=== PATIENT | female | born 1975 | race Caucasian/White ===

== ENCOUNTER 2021-02-19 14:24 | Inpatient (IN) ==
[2021-02-19] MEDS ORDERED: Ampicillin/Sulbactam 1,500 MG in 0.9 % Sodium Chloride Mini Bag 100 ML IVPB ONE (14:38)
[2021-02-19] MEDS ORDERED: 0.9 % Sodium Chloride 1,000 ML IVC ONE (14:38)
[2021-02-19] MEDS ORDERED: *HR* OxyCODONE/APAP 5/325 TABLET PO ONE (14:45)
[2021-02-19] MEDS ORDERED: Tdap (Boostrix) Vaccine 0.5 ML SYRINGE IM ONE (14:45)
[2021-02-19] MEDS ORDERED: Rabies Vaccine 2.5 UNIT VIAL IM ONE (14:45)
[2021-02-19] MEDS ORDERED: RABIES IMMUNE GLOBULIN/PF 1,500 UNIT/5 ML VIAL IM ONE (14:45)
[2021-02-19] MEDS ORDERED: RABIES IMMUNE GLOBULIN IM SCH (15:00)
[2021-02-19 16:35] LABS: Basophils # 0.1 K/mcL (0.0-0.2); Basophils % 1.4 %; Eosinophils % 0.5 %; Hematocrit 43.7 % (35.3-44.9); Hemoglobin 14.9 g/dL (11.5-15.4); Immature Granulocytes % 0.2 % (0-4); Lymphocytes # 1.9 K/mcL (0.6-4.6); Lymphocytes % 23.4 %; Mean Corpuscular HGB Conc 34.1 g/dL (31.6-35.5); Mean Corpuscular Hemoglobin 31.6 pg (28.0-33.3); Mean Corpuscular Volume 92.6 fL (83.0-100.0); Mean Platelet Volume 8.4 fL (9.4-12.4); Monocytes # 0.5 K/mcL (0.0-1.3); Monocytes % 6.4 %; Neutrophils # 5.6 K/mcL (1.6-8.9); Platelet Count 310 K/mcL (140-400); Red Blood Count 4.72 M/mcL (3.82-4.97); Red Cell Distribution Width 13.1 % (11.5-14.5); Segmented Neutrophils % 68.1 %; White Blood Count 8.3 K/mcL (4.3-11.1)
[2021-02-19 16:58] LABS: BUN/Creatinine Ratio 17 (6-26); Blood Urea Nitrogen 17 mg/dL (6-20); Calcium 9.4 mg/dL (8.6-10.3); Carbon Dioxide 21 mEq/L (23-29); Chloride 105 mEq/L (98-107); Glucose 109 mg/dL (70-105); Osmolality,Calculated 280 (280-300); Sodium 134 mEq/L (136-145); eGFR For African Americans > 60 (> 60); eGFR For Non-African Americans > 60 (> 60)
[2021-02-19] MEDS ORDERED: Melatonin 3 MG TABLET PO PRN (17:54)
[2021-02-19] MEDS ORDERED: Naloxone 0.4 MG/ML INJ IVP PRN (17:54)
[2021-02-19] MEDS ORDERED: Acetaminophen 325 MG TABLET PO PRN (17:54)
[2021-02-19] MEDS ORDERED: Ondansetron 4 MG/2 ML VIAL IVP PRN (17:54)
[2021-02-19] MEDS ORDERED: Ipratropium/Albuterol Neb 3 ML IH PRN (18:52)
[2021-02-19] MEDS: *HR* OxyCODONE Immed Rel 5 MG TABLET PO PRN (20:00)
[2021-02-19] MEDS: Budesonide/Formoterol 160/4.5 1 PUFF INH IH SCH (20:12)
[2021-02-19] MEDS ORDERED: risperiDONE 1 MG TABLET PO SCH (21:00)
[2021-02-19] MEDS ORDERED: lamoTRIgine 100 MG TABLET PO SCH (21:00)
[2021-02-19] MEDS ORDERED: traZODone 50 MG TABLET PO SCH (21:00)
[2021-02-19] MEDS: Nicotine 21 MG PATCH.TD24 TD SCH (21:06)
[2021-02-19] MEDS: *HR* HYDROcodone/Acet 5/325 mg TABLET PO PRN (21:24)
[2021-02-19] MEDS ORDERED: Morphine Sulfate 2 MG/ML SYRINGE IVP ONE (23:56)
[2021-02-20] MEDS: *HR* OxyCODONE Immed Rel 5 MG TABLET PO PRN ×2 (02:28→08:57)
[2021-02-20] MEDS: *HR* HYDROcodone/Acet 5/325 mg TABLET PO PRN (05:22)
[2021-02-20 05:51] LABS: Hematocrit 38.9 % (35.3-44.9); Hemoglobin 13.4 g/dL (11.5-15.4); Mean Corpuscular HGB Conc 34.4 g/dL (31.6-35.5); Mean Corpuscular Hemoglobin 31.9 pg (28.0-33.3); Mean Corpuscular Volume 92.6 fL (83.0-100.0); Mean Platelet Volume 8.5 fL (9.4-12.4); Platelet Count 301 K/mcL (140-400); Red Cell Distribution Width 13.4 % (11.5-14.5); White Blood Count 7.5 K/mcL (4.3-11.1)
[2021-02-20 06:06] LABS: INR 1.4; Prothrombin Time 16.2 Seconds (9.4-12.1)
[2021-02-20 06:29] LABS: BUN/Creatinine Ratio 17 (6-26); Blood Urea Nitrogen 15 mg/dL (6-20); Calcium 8.4 mg/dL (8.6-10.3); Carbon Dioxide 18 mEq/L (23-29); Chloride 107 mEq/L (98-107); Glucose 117 mg/dL (70-105); Osmolality,Calculated 278 (280-300); Potassium 3.5 mEq/L (3.5-5.1); Sodium 133 mEq/L (136-145); eGFR For African Americans > 60 (> 60); eGFR For Non-African Americans > 60 (> 60)
[2021-02-20] MEDS: Nicotine 21 MG PATCH.TD24 TD SCH (08:16)
[2021-02-20] MEDS: Budesonide/Formoterol 160/4.5 1 PUFF INH IH SCH ×2 (08:52→20:36)
[2021-02-20] MEDS ORDERED: polyethylene glycoL 3350 17 GM POWD.PACK PO PRN (09:11)
[2021-02-20] MEDS: Simethicone 80 MG TAB.CHEW PO PRN ×3 (09:56→22:27)
[2021-02-20 11:38] LABS: Adenovirus Not Detected (Not Detect); Coronavirus 229E Not Detected (Not Detect); Coronavirus HKU1 Not Detected (Not Detect); Coronavirus NL63 Not Detected (Not Detect); Coronavirus OC43 Not Detected (Not Detect); Human Metapneumovirus Not Detected (Not Detect); Human Rhinovirus/Enterovirus Not Detected (Not Detect); Influenza A Subtype 2009 H1 Not Detected (Not Detect); SARS-CoV-2 Not Detected (Not Detect)
[2021-02-20 11:39] LABS: Bordetella Pertussis Not Detected (Not Detect); Chlamydophila pneumoniae Not Detected (Not Detect); Influenza B Not Detected (Not Detect); Mycoplasma pneumoniae Not Detected (Not Detect); Parainfluenza Virus 1 Not Detected (Not Detect); Parainfluenza Virus 2 Not Detected (Not Detect); Parainfluenza Virus 3 Not Detected (Not Detect); Parainfluenza Virus 4 Not Detected (Not Detect); Respiratory Syncytial Virus Not Detected (Not Detect)
[2021-02-20] MEDS ORDERED: Morphine Sulfate 2 MG/ML SYRINGE IVP ONE (12:28)
[2021-02-20] MEDS ORDERED: Lidocaine/EPI 1:200k 1% PF 10 ML VIAL ONE (13:03)
[2021-02-20] MEDS ORDERED: Lidocaine -MPF 2% 2 ML VIAL ONE (13:36)
[2021-02-20] MEDS ORDERED: *HR* Propofol 200 MG/20 ML VIAL IVP ONE (13:37)
[2021-02-20] MEDS ORDERED: *HR* FentaNYL (PF) 100 MCG/2 ML VIAL ONE (14:07)
[2021-02-20] MEDS ORDERED: Ondansetron 4 MG/2 ML VIAL ONE (14:07)
[2021-02-20] MEDS ORDERED: Ampicillin/Sulbactam 3,000 MG in 0.9 % Sodium Chloride Mini Bag 100 ML IVPB SCH (15:00)
[2021-02-20] MEDS ORDERED: Ipratropium/Albuterol Neb 3 ML IH PRN (15:32)
[2021-02-20] MEDS ORDERED: *HR* HYDROcodone/Acet 5/325 mg TABLET PO PRN (15:32)
[2021-02-20] MEDS ORDERED: Acetaminophen 325 MG TABLET PO PRN (15:32)
[2021-02-20] MEDS ORDERED: Melatonin 3 MG TABLET PO PRN (15:32)
[2021-02-20] MEDS ORDERED: *HR* OxyCODONE Immed Rel 5 MG TABLET PO PRN (15:32)
[2021-02-20] MEDS ORDERED: Naloxone 0.4 MG/ML INJ IVP PRN (15:32)
[2021-02-20] MEDS ORDERED: 0.9 % Sodium Chloride 1,000 ML IVC ONE ×2 (17:02→17:28)
[2021-02-20] MEDS ORDERED: 0.9 % Sodium Chloride 1,000 ML IVC SCH (17:30)
[2021-02-20 17:48] LABS: Chol/HDL Ratio 3.9 (0-4.9); Cholesterol 117 mg/dL (< 200); Ethanol < 10 mg/dL (Less than 10); HDL Cholesterol 30 mg/dL (40-59); LDL Cholesterol,Calculated 79 mg/dL (< 100); Triglycerides 42 mg/dL (< 150)
[2021-02-20] MEDS ORDERED: *HR* HYDROmorphone (PF) 1 MG/ML SYRINGE IVP ONE (18:47)
[2021-02-20 19:03] LABS: Lipase 74 Units/L (11-82)
[2021-02-20] MEDS: Ondansetron 4 MG/2 ML VIAL IVP PRN (20:50)
[2021-02-20] MEDS: traZODone 50 MG TABLET PO SCH (21:41)
[2021-02-20] MEDS: lamoTRIgine 100 MG TABLET PO SCH (21:41)
[2021-02-20] MEDS: risperiDONE 1 MG TABLET PO SCH (22:22)
[2021-02-20] MEDS: Piperacillin/Tazobactam 3.375 GM in 0.9 % Sodium Chloride Mini Bag 100 ML IVPB SCH (22:27)
[2021-02-21] MEDS ORDERED: Ampicillin/Sulbactam 3,000 MG in 0.9 % Sodium Chloride Mini Bag 100 ML IVPB SCH (04:00)
[2021-02-21] MEDS: Budesonide/Formoterol 160/4.5 1 PUFF INH IH SCH ×2 (08:20→19:47)
[2021-02-21] MEDS: Tiotropium 10 INH DOSE IH SCH (08:20)
[2021-02-21] MEDS: Piperacillin/Tazobactam 3.375 GM in 0.9 % Sodium Chloride Mini Bag 100 ML IVPB SCH ×2 (08:56→16:06)
[2021-02-21 08:57] LABS: Basophils % 0.3 %; Hematocrit 42.8 % (35.3-44.9); Hemoglobin 14.9 g/dL (11.5-15.4); Immature Granulocytes % 0.4 % (0-4); Lymphocytes # 1.2 K/mcL (0.6-4.6); Lymphocytes % 7.8 %; Mean Corpuscular HGB Conc 34.8 g/dL (31.6-35.5); Mean Corpuscular Hemoglobin 32.1 pg (28.0-33.3); Mean Corpuscular Volume 92.2 fL (83.0-100.0); Mean Platelet Volume 8.3 fL (9.4-12.4); Monocytes % 6.4 %; Neutrophils # 13.5 K/mcL (1.6-8.9); Platelet Count 276 K/mcL (140-400); Red Blood Count 4.64 M/mcL (3.82-4.97); Red Cell Distribution Width 13.6 % (11.5-14.5); Segmented Neutrophils % 85.1 %
[2021-02-21 08:58] LABS: Basophils # 0.1 K/mcL (0.0-0.2); White Blood Count 15.8 K/mcL (4.3-11.1)
[2021-02-21 09:16] LABS: Alanine Aminotransferase 132 Units/L (7-52); Albumin 3.5 g/dL (3.5-5.7); Albumin/Globulin Ratio 1.3 (1.1-2.2); Alkaline Phosphatase 50 Units/L (34-104); Aspartate Amino Transferase 103 Units/L (13-39); BUN/Creatinine Ratio 20 (6-26); Bilirubin,Direct 0.2 mg/dL (0.0-0.2); Bilirubin,Indirect 0.5 mg/dL (0.0-1.0); Bilirubin,Total 0.7 mg/dL (0.3-1.0); Blood Urea Nitrogen 13 mg/dL (6-20); Calcium 8.3 mg/dL (8.6-10.3); Carbon Dioxide 21 mEq/L (23-29); Chloride 103 mEq/L (98-107); Globulin 2.8 g/dL (2.4-3.5); Glucose 108 mg/dL (70-105); Osmolality,Calculated 273 (280-300); Potassium 3.9 mEq/L (3.5-5.1); Sodium 131 mEq/L (136-145); Total Protein 6.3 g/dL (6.4-8.9); eGFR For African Americans > 60 (> 60); eGFR For Non-African Americans > 60 (> 60)
[2021-02-21] MEDS ORDERED: Isovue-370 500 ML BOTTLE IVP ONE (10:30)
[2021-02-21] MEDS: 0.9 % Sodium Chloride 1,000 ML IVC SCH ×2 (10:48→20:35)
[2021-02-21] MEDS: Nicotine 21 MG PATCH.TD24 TD SCH (10:50)
[2021-02-21] MEDS: Simethicone 80 MG TAB.CHEW PO PRN (10:50)
[2021-02-21] MEDS ORDERED: Vancomycin 2,000 MG/520 ML IV.SOLN IVPB ONE (11:12)
[2021-02-21 16:09] LABS: Bilirubin,Urine Negative (Negative); Blood,Urine Negative (Negative); Clarity,Urine Clear (Clear); Color,Urine Light-Yellow (Yellow); Glucose,Urine (UA) Normal (Normal); Ketones,Urine 10 mg/dL (Negative); Leukocyte Esterase,Urine Negative (Negative); Nitrite,Urine Negative (Negative); PH,Urine 6.5 pH Units (5.0-8.0); Protein,Urine Trace mg/dL (Neg-Trace); Specific Gravity,Urine > 1.030 (1.010-1.025); Urobilinogen,Urine Normal (Normal)
[2021-02-21] MEDS: lamoTRIgine 100 MG TABLET PO SCH (20:28)
[2021-02-21] MEDS: traZODone 50 MG TABLET PO SCH (20:30)
[2021-02-21] MEDS: risperiDONE 1 MG TABLET PO SCH (20:31)
[2021-02-21] MEDS ORDERED: 0.9 % Sodium Chloride 1,000 ML IVC SCH (21:15)
[2021-02-21] MEDS: Vancomycin 1,500 MG/265 ML IV.SOLN IVPB SCH (22:49)
[2021-02-22 01:09] LABS: Basophils % 0.2 %; Eosinophils % 0.1 %; Hematocrit 42.5 % (35.3-44.9); Hemoglobin 14.1 g/dL (11.5-15.4); Immature Granulocytes % 0.5 % (0-4); Lymphocytes # 1.6 K/mcL (0.6-4.6); Lymphocytes % 8.3 %; Mean Corpuscular HGB Conc 33.2 g/dL (31.6-35.5); Mean Corpuscular Hemoglobin 31.3 pg (28.0-33.3); Mean Corpuscular Volume 94.2 fL (83.0-100.0); Mean Platelet Volume 8.8 fL (9.4-12.4); Monocytes # 1.2 K/mcL (0.0-1.3); Monocytes % 6.2 %; Neutrophils # 16.5 K/mcL (1.6-8.9); Platelet Count 254 K/mcL (140-400); Red Blood Count 4.51 M/mcL (3.82-4.97); Red Cell Distribution Width 13.4 % (11.5-14.5); Segmented Neutrophils % 84.7 %; White Blood Count 19.4 K/mcL (4.3-11.1)
[2021-02-22] MEDS: Piperacillin/Tazobactam 3.375 GM in 0.9 % Sodium Chloride Mini Bag 100 ML IVPB SCH ×3 (01:38→16:50)
[2021-02-22 01:42] LABS: Alanine Aminotransferase 85 Units/L (7-52); Albumin 3.3 g/dL (3.5-5.7); Albumin/Globulin Ratio 1.2 (1.1-2.2); Alkaline Phosphatase 45 Units/L (34-104); Aspartate Amino Transferase 49 Units/L (13-39); BUN/Creatinine Ratio 16 (6-26); Bilirubin,Direct 0.3 mg/dL (0.0-0.2); Bilirubin,Indirect 0.4 mg/dL (0.0-1.0); Bilirubin,Total 0.7 mg/dL (0.3-1.0); Blood Urea Nitrogen 10 mg/dL (6-20); Calcium 7.7 mg/dL (8.6-10.3); Carbon Dioxide 19 mEq/L (23-29); Chloride 104 mEq/L (98-107); Globulin 2.8 g/dL (2.4-3.5); Glucose 88 mg/dL (70-105); Lipase > 1800 Units/L (11-82); Osmolality,Calculated 270 (280-300); Potassium 3.7 mEq/L (3.5-5.1); Sodium 131 mEq/L (136-145); Total Protein 6.1 g/dL (6.4-8.9); eGFR For African Americans > 60 (> 60); eGFR For Non-African Americans > 60 (> 60)
[2021-02-22] MEDS ORDERED: 0.9 % Sodium Chloride 1,000 ML IVC SCH (07:37)
[2021-02-22] MEDS ORDERED: Rabies Vaccine 2.5 UNIT VIAL IM ONE (09:00)
[2021-02-22] MEDS: Nicotine 21 MG PATCH.TD24 TD SCH (09:08)
[2021-02-22] MEDS: Simethicone 80 MG TAB.CHEW PO PRN ×2 (09:39→20:08)
[2021-02-22] MEDS: Budesonide/Formoterol 160/4.5 1 PUFF INH IH SCH ×2 (10:38→20:22)
[2021-02-22] MEDS: Tiotropium 10 INH DOSE IH SCH (10:38)
[2021-02-22] MEDS: Vancomycin 1,500 MG/265 ML IV.SOLN IVPB SCH (11:04)
[2021-02-22] MEDS: 0.9 % Sodium Chloride 1,000 ML IVC SCH ×3 (11:48→20:03)
[2021-02-22] MEDS: polyethylene glycoL 3350 17 GM POWD.PACK PO PRN (14:17)
[2021-02-22] MEDS: traZODone 50 MG TABLET PO SCH (20:02)
[2021-02-22] MEDS: risperiDONE 1 MG TABLET PO SCH (20:02)
[2021-02-22] MEDS: lamoTRIgine 100 MG TABLET PO SCH (20:02)
[2021-02-23] MEDS ORDERED: Vancomycin 1,750 MG/517.5 ML IV.SOLN IVPB SCH
[2021-02-23] MEDS: Piperacillin/Tazobactam 3.375 GM in 0.9 % Sodium Chloride Mini Bag 100 ML IVPB SCH ×2 (01:19→08:25)
[2021-02-23] MEDS: 0.9 % Sodium Chloride 1,000 ML IVC SCH ×2 (01:20→15:25)
[2021-02-23 03:42] LABS: Basophils # 0.1 K/mcL (0.0-0.2); Basophils % 0.3 %; Eosinophils % 0.1 %; Hematocrit 35.6 % (35.3-44.9); Lymphocytes # 1.6 K/mcL (0.6-4.6); Mean Corpuscular HGB Conc 33.4 g/dL (31.6-35.5); Mean Corpuscular Hemoglobin 31.4 pg (28.0-33.3); Mean Corpuscular Volume 93.9 fL (83.0-100.0); Mean Platelet Volume 8.9 fL (9.4-12.4); Monocytes # 1.3 K/mcL (0.0-1.3); Monocytes % 8.3 %; Neutrophils # 12.5 K/mcL (1.6-8.9); Platelet Count 219 K/mcL (140-400); Red Blood Count 3.79 M/mcL (3.82-4.97); Red Cell Distribution Width 13.9 % (11.5-14.5); Segmented Neutrophils % 80.3 %; White Blood Count 15.6 K/mcL (4.3-11.1)
[2021-02-23 03:44] LABS: Hemoglobin 11.9 g/dL (11.5-15.4)
[2021-02-23 04:03] LABS: Alanine Aminotransferase 41 Units/L (7-52); Albumin 2.7 g/dL (3.5-5.7); Alkaline Phosphatase 37 Units/L (34-104); Aspartate Amino Transferase 23 Units/L (13-39); BUN/Creatinine Ratio 15 (6-26); Bilirubin,Direct 0.5 mg/dL (0.0-0.2); Bilirubin,Indirect 0.8 mg/dL (0.0-1.0); Bilirubin,Total 1.3 mg/dL (0.3-1.0); Blood Urea Nitrogen 8 mg/dL (6-20); Calcium 7.2 mg/dL (8.6-10.3); Carbon Dioxide 18 mEq/L (23-29); Chloride 103 mEq/L (98-107); Globulin 2.6 g/dL (2.4-3.5); Glucose 73 mg/dL (70-105); Lipase 222 Units/L (11-82); Osmolality,Calculated 267 (280-300); Potassium 3.4 mEq/L (3.5-5.1); Sodium 130 mEq/L (136-145); Total Protein 5.3 g/dL (6.4-8.9); eGFR For African Americans > 60 (> 60); eGFR For Non-African Americans > 60 (> 60)
[2021-02-23] MEDS ORDERED: Potassium Chloride Elixir 20 MEQ/15 ML UDC PO ONE (07:24)
[2021-02-23] MEDS: Tiotropium 10 INH DOSE IH SCH (08:08)
[2021-02-23] MEDS: Budesonide/Formoterol 160/4.5 1 PUFF INH IH SCH ×2 (08:08→20:19)
[2021-02-23] MEDS: Nicotine 21 MG PATCH.TD24 TD SCH (08:24)
[2021-02-23 08:26] LABS: Hematocrit 34.2 % (35.3-44.9); Hemoglobin 11.6 g/dL (11.5-15.4)
[2021-02-23] MEDS ORDERED: 0.9 % Sodium Chloride 1,000 ML IV ONE (10:27)
[2021-02-23 11:58] LABS: C-Reactive Protein 185 mg/L (Less than 10)
[2021-02-23] MEDS: Clindamycin 600 MG/50 ML 600 MG/50 ML IV.SOLN IVPB SCH ×2 (15:24→23:48)
[2021-02-23] MEDS: Penicillin G Potassium 4,000,000 UNIT in 0.9 % Sodium Chloride 100 ML IVPB SCH ×3 (17:58→23:48)
[2021-02-23] MEDS: traZODone 50 MG TABLET PO SCH (19:36)
[2021-02-23] MEDS: Simethicone 80 MG TAB.CHEW PO PRN (19:39)
[2021-02-23] MEDS: Lactobacillus 1 EACH CAP.SPRINK PO SCH (19:39)
[2021-02-23] MEDS: risperiDONE 1 MG TABLET PO SCH (19:39)
[2021-02-23] MEDS: lamoTRIgine 100 MG TABLET PO SCH (19:40)
[2021-02-24] MEDS: 0.9 % Sodium Chloride 1,000 ML IVC SCH ×6 (01:43→21:08)
[2021-02-24 02:52] LABS: Basophils % 0.3 %; Eosinophils % 0.2 %; Hematocrit 32.5 % (35.3-44.9); Hemoglobin 11.4 g/dL (11.5-15.4); Immature Granulocytes % 0.4 % (0-4); Lymphocytes # 1.4 K/mcL (0.6-4.6); Lymphocytes % 9.6 %; Mean Corpuscular HGB Conc 35.1 g/dL (31.6-35.5); Mean Corpuscular Hemoglobin 32.4 pg (28.0-33.3); Mean Corpuscular Volume 92.3 fL (83.0-100.0); Mean Platelet Volume 9.2 fL (9.4-12.4); Monocytes # 1.1 K/mcL (0.0-1.3); Monocytes % 8.1 %; Neutrophils # 11.4 K/mcL (1.6-8.9); Platelet Count 214 K/mcL (140-400); Red Blood Count 3.52 M/mcL (3.82-4.97); Red Cell Distribution Width 13.9 % (11.5-14.5); Segmented Neutrophils % 81.4 %
[2021-02-24 03:04] LABS: Alanine Aminotransferase 29 Units/L (7-52); Albumin 2.8 g/dL (3.5-5.7); Alkaline Phosphatase 43 Units/L (34-104); Aspartate Amino Transferase 19 Units/L (13-39); BUN/Creatinine Ratio 13 (6-26); Bilirubin,Direct 1.4 mg/dL (0.0-0.2); Bilirubin,Indirect 0.6 mg/dL (0.0-1.0); Blood Urea Nitrogen 6 mg/dL (6-20); C-Reactive Protein 229 mg/L (Less than 10); Calcium 7.6 mg/dL (8.6-10.3); Carbon Dioxide 17 mEq/L (23-29); Chloride 104 mEq/L (98-107); Globulin 2.7 g/dL (2.4-3.5); Glucose 72 mg/dL (70-105); Lipase 74 Units/L (11-82); Osmolality,Calculated 270 (280-300); Potassium 3.3 mEq/L (3.5-5.1); Sodium 132 mEq/L (136-145); Total Protein 5.5 g/dL (6.4-8.9); eGFR For African Americans > 60 (> 60); eGFR For Non-African Americans > 60 (> 60)
[2021-02-24] MEDS: Simethicone 80 MG TAB.CHEW PO PRN ×3 (04:46→22:53)
[2021-02-24] MEDS: Penicillin G Potassium 4,000,000 UNIT in 0.9 % Sodium Chloride 100 ML IVPB SCH ×5 (04:46→21:02)
[2021-02-24] MEDS ORDERED: Potassium Chloride 40 MEQ, Lidocaine 1% 2 ML in 0.9 % Sodium Chloride 500 ML IVPB ONE (07:19)
[2021-02-24] MEDS: Budesonide/Formoterol 160/4.5 1 PUFF INH IH SCH ×2 (07:54→19:35)
[2021-02-24] MEDS: Tiotropium 10 INH DOSE IH SCH (07:54)
[2021-02-24] MEDS: Clindamycin 600 MG/50 ML 600 MG/50 ML IV.SOLN IVPB SCH (08:43)
[2021-02-24] MEDS: Nicotine 21 MG PATCH.TD24 TD SCH (08:44)
[2021-02-24] MEDS: Lactobacillus 1 EACH CAP.SPRINK PO SCH ×2 (08:44→21:02)
[2021-02-24] MEDS: polyethylene glycoL 3350 17 GM POWD.PACK PO PRN (12:55)
[2021-02-24] MEDS: Ondansetron 4 MG/2 ML VIAL IVP PRN (18:56)
[2021-02-24] MEDS: risperiDONE 1 MG TABLET PO SCH (21:02)
[2021-02-24] MEDS: traZODone 50 MG TABLET PO SCH (21:03)
[2021-02-24] MEDS: lamoTRIgine 100 MG TABLET PO SCH (21:03)
[2021-02-25] MEDS: Penicillin G Potassium 4,000,000 UNIT in 0.9 % Sodium Chloride 100 ML IVPB SCH ×7 (00:42→23:40)
[2021-02-25] MEDS: 0.9 % Sodium Chloride 1,000 ML IVC SCH ×6 (00:42→20:10)
[2021-02-25 01:10] LABS: Basophils # 0.1 K/mcL (0.0-0.2); Basophils % 0.4 %; Eosinophils % 0.3 %; Hematocrit 29.7 % (35.3-44.9); Hemoglobin 10.2 g/dL (11.5-15.4); Immature Granulocytes % 0.6 % (0-4); Lymphocytes # 1.4 K/mcL (0.6-4.6); Lymphocytes % 10.9 %; Mean Corpuscular HGB Conc 34.3 g/dL (31.6-35.5); Mean Corpuscular Hemoglobin 31.9 pg (28.0-33.3); Mean Corpuscular Volume 92.8 fL (83.0-100.0); Monocytes # 1.3 K/mcL (0.0-1.3); Monocytes % 10.2 %; Neutrophils # 9.6 K/mcL (1.6-8.9); Platelet Count 239 K/mcL (140-400); Segmented Neutrophils % 77.6 %; White Blood Count 12.4 K/mcL (4.3-11.1)
[2021-02-25 01:33] LABS: Alanine Aminotransferase 25 Units/L (7-52); Albumin 2.8 g/dL (3.5-5.7); Alkaline Phosphatase 53 Units/L (34-104); Aspartate Amino Transferase 21 Units/L (13-39); BUN/Creatinine Ratio 6 (6-26); Bilirubin,Direct 2.1 mg/dL (0.0-0.2); Bilirubin,Indirect 0.9 mg/dL (0.0-1.0); Blood Urea Nitrogen 3 mg/dL (6-20); Calcium 7.6 mg/dL (8.6-10.3); Carbon Dioxide 18 mEq/L (23-29); Chloride 107 mEq/L (98-107); Globulin 2.9 g/dL (2.4-3.5); Glucose 106 mg/dL (70-105); Osmolality,Calculated 275 (280-300); Potassium 3.3 mEq/L (3.5-5.1); Sodium 134 mEq/L (136-145); Total Protein 5.7 g/dL (6.4-8.9); eGFR For African Americans > 60 (> 60); eGFR For Non-African Americans > 60 (> 60)
[2021-02-25] MEDS: Tiotropium 10 INH DOSE IH SCH (07:27)
[2021-02-25] MEDS: Budesonide/Formoterol 160/4.5 1 PUFF INH IH SCH ×2 (07:27→22:02)
[2021-02-25] MEDS: Lactobacillus 1 EACH CAP.SPRINK PO SCH ×2 (07:52→20:08)
[2021-02-25] MEDS: Nicotine 21 MG PATCH.TD24 TD SCH (07:55)
[2021-02-25] MEDS ORDERED: Potassium Chloride 40 MEQ, Lidocaine 1% 2 ML in 0.9 % Sodium Chloride 500 ML IVPB ONE (09:59)
[2021-02-25] MEDS: risperiDONE 1 MG TABLET PO SCH (20:08)
[2021-02-25] MEDS: traZODone 50 MG TABLET PO SCH (20:08)
[2021-02-25] MEDS: lamoTRIgine 100 MG TABLET PO SCH (20:08)
[2021-02-25] MEDS: Simethicone 80 MG TAB.CHEW PO PRN (21:53)
[2021-02-26 00:54] LABS: Basophils % 0.3 %; Eosinophils # 0.1 K/mcL (0.0-0.6); Eosinophils % 0.7 %; Hemoglobin 10.1 g/dL (11.5-15.4); Immature Granulocytes % 0.5 % (0-4); Lymphocytes # 1.3 K/mcL (0.6-4.6); Lymphocytes % 10.9 %; Mean Corpuscular HGB Conc 34.8 g/dL (31.6-35.5); Mean Corpuscular Hemoglobin 32.2 pg (28.0-33.3); Mean Corpuscular Volume 92.4 fL (83.0-100.0); Mean Platelet Volume 9.1 fL (9.4-12.4); Monocytes # 1.3 K/mcL (0.0-1.3); Monocytes % 10.2 %; Neutrophils # 9.5 K/mcL (1.6-8.9); Platelet Count 243 K/mcL (140-400); Red Blood Count 3.14 M/mcL (3.82-4.97); Red Cell Distribution Width 14.2 % (11.5-14.5); Segmented Neutrophils % 77.4 %; White Blood Count 12.3 K/mcL (4.3-11.1)
[2021-02-26 01:13] LABS: Alanine Aminotransferase 25 Units/L (7-52); Albumin 2.7 g/dL (3.5-5.7); Albumin/Globulin Ratio 0.9 (1.1-2.2); Alkaline Phosphatase 55 Units/L (34-104); Aspartate Amino Transferase 25 Units/L (13-39); BUN/Creatinine Ratio 7 (6-26); Blood Urea Nitrogen 3 mg/dL (6-20); Calcium 7.7 mg/dL (8.6-10.3); Carbon Dioxide 19 mEq/L (23-29); Chloride 108 mEq/L (98-107); Glucose 98 mg/dL (70-105); Osmolality,Calculated 279 (280-300); Potassium 3.6 mEq/L (3.5-5.1); Sodium 136 mEq/L (136-145); Total Protein 5.7 g/dL (6.4-8.9); eGFR For African Americans > 60 (> 60); eGFR For Non-African Americans > 60 (> 60)
[2021-02-26] MEDS: 0.9 % Sodium Chloride 1,000 ML IVC SCH ×7 (02:04→23:59)
[2021-02-26] MEDS: Penicillin G Potassium 4,000,000 UNIT in 0.9 % Sodium Chloride 100 ML IVPB SCH ×5 (04:40→19:47)
[2021-02-26] MEDS: Budesonide/Formoterol 160/4.5 1 PUFF INH IH SCH ×2 (07:48→20:23)
[2021-02-26] MEDS: Tiotropium 10 INH DOSE IH SCH (07:48)
[2021-02-26] MEDS: Nicotine 21 MG PATCH.TD24 TD SCH (07:55)
[2021-02-26] MEDS: Lactobacillus 1 EACH CAP.SPRINK PO SCH ×2 (07:55→19:46)
[2021-02-26] MEDS: Simethicone 80 MG TAB.CHEW PO PRN ×2 (08:06→19:46)
[2021-02-26] MEDS ORDERED: Rabies Vaccine 2.5 UNIT VIAL IM ONE (15:07)
[2021-02-26] MEDS: risperiDONE 1 MG TABLET PO SCH (19:46)
[2021-02-26] MEDS: lamoTRIgine 100 MG TABLET PO SCH (19:47)
[2021-02-26] MEDS: traZODone 50 MG TABLET PO SCH (19:47)
[2021-02-27] MEDS: Penicillin G Potassium 4,000,000 UNIT in 0.9 % Sodium Chloride 100 ML IVPB SCH ×6 (00:02→20:38)
[2021-02-27 01:44] LABS: Basophils % 0.2 %; Eosinophils # 0.1 K/mcL (0.0-0.6); Eosinophils % 0.9 %; Hematocrit 27.2 % (35.3-44.9); Hemoglobin 9.6 g/dL (11.5-15.4); Lymphocytes % 16.4 %; Mean Corpuscular HGB Conc 35.3 g/dL (31.6-35.5); Mean Corpuscular Hemoglobin 32.3 pg (28.0-33.3); Mean Corpuscular Volume 91.6 fL (83.0-100.0); Monocytes # 1.1 K/mcL (0.0-1.3); Monocytes % 8.6 %; Platelet Count 265 K/mcL (140-400); Red Blood Count 2.97 M/mcL (3.82-4.97); Red Cell Distribution Width 14.1 % (11.5-14.5); Segmented Neutrophils % 72.9 %; White Blood Count 12.3 K/mcL (4.3-11.1)
[2021-02-27 02:01] LABS: Alanine Aminotransferase 32 Units/L (7-52); Albumin 2.7 g/dL (3.5-5.7); Albumin/Globulin Ratio 0.9 (1.1-2.2); Alkaline Phosphatase 66 Units/L (34-104); Aspartate Amino Transferase 43 Units/L (13-39); BUN/Creatinine Ratio 9 (6-26); Bilirubin,Total 2.3 mg/dL (0.3-1.0); Blood Urea Nitrogen 4 mg/dL (6-20); Calcium 7.7 mg/dL (8.6-10.3); Carbon Dioxide 19 mEq/L (23-29); Chloride 106 mEq/L (98-107); Glucose 106 mg/dL (70-105); Osmolality,Calculated 273 (280-300); Potassium 3.3 mEq/L (3.5-5.1); Sodium 133 mEq/L (136-145); Total Protein 5.7 g/dL (6.4-8.9); eGFR For African Americans > 60 (> 60); eGFR For Non-African Americans > 60 (> 60)
[2021-02-27 02:37] LABS: Platelet Estimate Normal (Normal); Reactive Lymphocytes Present (Not Present)
[2021-02-27] MEDS: 0.9 % Sodium Chloride 1,000 ML IVC SCH ×2 (03:41→08:13)
[2021-02-27] MEDS ORDERED: *HR* Succinylcholine 200 MG/10 ML VIAL IVP ONE (06:58)
[2021-02-27] MEDS ORDERED: *HR* Rocuronium Bromide 50 MG/5 ML VIAL ONE (06:58)
[2021-02-27] MEDS ORDERED: Lidocaine -MPF 4% 5 ML AMPUL ONE (06:58)
[2021-02-27] MEDS ORDERED: Ondansetron 4 MG/2 ML VIAL ONE (06:58)
[2021-02-27] MEDS ORDERED: Lidocaine -MPF 2% 2 ML VIAL ONE (06:58)
[2021-02-27] MEDS ORDERED: *HR* FentaNYL (PF) 100 MCG/2 ML VIAL ONE (06:59)
[2021-02-27] MEDS ORDERED: *HR* Propofol 200 MG/20 ML VIAL IVP ONE ×2 (06:59)
[2021-02-27] MEDS ORDERED: *HR* Midazolam HCl 2 MG/2 ML VIAL ONE (06:59)
[2021-02-27] MEDS: Budesonide/Formoterol 160/4.5 1 PUFF INH IH SCH ×2 (07:30→20:35)
[2021-02-27] MEDS: Tiotropium 10 INH DOSE IH SCH (07:30)
[2021-02-27] MEDS ORDERED: Isovue-300 50ML VIAL ONE (07:46)
[2021-02-27] MEDS ORDERED: cefOXitin 1,000 MG, 0.9 % Sodium Chloride 1,000 ML IR ONE (08:00)
[2021-02-27] MEDS: Lactobacillus 1 EACH CAP.SPRINK PO SCH ×2 (08:12→20:17)
[2021-02-27] MEDS: Nicotine 21 MG PATCH.TD24 TD SCH (08:18)
[2021-02-27] MEDS ORDERED: Ondansetron 4 MG/2 ML VIAL IVP PRN ×3 (08:19→10:41)
[2021-02-27] MEDS ORDERED: *HR* HYDROmorphone PF 0.5 MG/0.5 ML SYRINGE IVP PRN ×2 (08:19→10:41)
[2021-02-27] MEDS ORDERED: Potassium Chloride 40 MEQ, Lidocaine 1% 2 ML in 0.9 % Sodium Chloride 500 ML IVPB ONE ×2 (08:49→10:41)
[2021-02-27] MEDS ORDERED: *HR* HYDROMORPHONE 2 MG/ML VIAL ONE ×2 (09:11→09:57)
[2021-02-27] MEDS ORDERED: Sugammadex Sodium 200 MG/2 ML VIAL IV ONE (09:40)
[2021-02-27] MEDS ORDERED: Acetaminophen IV 1,000 MG/100 ML BAG IVPB ONE (10:11)
[2021-02-27] MEDS ORDERED: 0.9 % Sodium Chloride 1,000 ML IVC SCH ×2 (10:41→14:45)
[2021-02-27] MEDS ORDERED: polyethylene glycoL 3350 17 GM POWD.PACK PO PRN (10:41)
[2021-02-27] MEDS ORDERED: Naloxone 0.4 MG/ML INJ IVP PRN (10:41)
[2021-02-27] MEDS ORDERED: Melatonin 3 MG TABLET PO PRN (10:41)
[2021-02-27] MEDS ORDERED: Simethicone 80 MG TAB.CHEW PO PRN (10:41)
[2021-02-27] MEDS ORDERED: Ipratropium/Albuterol Neb 3 ML IH PRN (10:41)
[2021-02-27] MEDS ORDERED: risperiDONE 1 MG TABLET PO SCH (21:00)
[2021-02-27] MEDS ORDERED: lamoTRIgine 100 MG TABLET PO SCH (21:00)
[2021-02-27] MEDS ORDERED: traZODone 50 MG TABLET PO SCH (21:00)
[2021-02-28] MEDS: Penicillin G Potassium 4,000,000 UNIT in 0.9 % Sodium Chloride 100 ML IVPB SCH ×3 (00:29→08:03)
[2021-02-28 07:15] VITALS: BP 142/71
[2021-02-28 07:20] LABS: Basophils % 0.2 %; Hematocrit 28.4 % (35.3-44.9); Hemoglobin 9.4 g/dL (11.5-15.4); Lymphocytes # 1.5 K/mcL (0.6-4.6); Lymphocytes % 13.8 %; Mean Corpuscular HGB Conc 33.1 g/dL (31.6-35.5); Mean Corpuscular Hemoglobin 31.1 pg (28.0-33.3); Mean Platelet Volume 8.9 fL (9.4-12.4); Monocytes # 0.9 K/mcL (0.0-1.3); Neutrophils # 8.5 K/mcL (1.6-8.9); Platelet Count 293 K/mcL (140-400); Red Blood Count 3.02 M/mcL (3.82-4.97); Red Cell Distribution Width 14.6 % (11.5-14.5); White Blood Count 11.1 K/mcL (4.3-11.1)
[2021-02-28 07:34] LABS: Alanine Aminotransferase 42 Units/L (7-52); Albumin 2.8 g/dL (3.5-5.7); Albumin/Globulin Ratio 0.9 (1.1-2.2); Alkaline Phosphatase 63 Units/L (34-104); Aspartate Amino Transferase 54 Units/L (13-39); BUN/Creatinine Ratio 10 (6-26); Bilirubin,Total 1.3 mg/dL (0.3-1.0); Blood Urea Nitrogen 5 mg/dL (6-20); Carbon Dioxide 21 mEq/L (23-29); Chloride 107 mEq/L (98-107); Glucose 148 mg/dL (70-105); Osmolality,Calculated 282 (280-300); Potassium 3.6 mEq/L (3.5-5.1); Sodium 136 mEq/L (136-145); Total Protein 5.8 g/dL (6.4-8.9); eGFR For African Americans > 60 (> 60); eGFR For Non-African Americans > 60 (> 60)
[2021-02-28] MEDS: Budesonide/Formoterol 160/4.5 1 PUFF INH IH SCH (07:57)
[2021-02-28] MEDS: Lactobacillus 1 EACH CAP.SPRINK PO SCH (08:03)
[2021-02-28] MEDS ORDERED: Nicotine 21 MG PATCH.TD24 TD SCH (09:00)
[2021-02-28] MEDS ORDERED: Tiotropium 10 INH DOSE IH SCH (10:00)
== END 2021-02-28 11:03 | disposition home or self-care (01) | DRG 853 ==
LOC: EMEROOARM 14:24 → 3NENU 14:24 → SUATTDRO 17:32 → 3NENU 18:23 → SUATTDRO 02-21 21:15
PROVIDERS: ADMIT Internal Medicine; ATTEND Family Medicine

== ENCOUNTER 2022-01-20 06:39 | Observation (INO) ==
[2022-01-20] MEDS ORDERED: Famotidine 20 MG TABLET PO ONE (07:00)
[2022-01-20] MEDS ORDERED: tiZANidine 4 MG TABLET PO ONE (07:00)
[2022-01-20] MEDS ORDERED: Gabapentin 300 MG CAPSULE PO ONE (07:00)
[2022-01-20] MEDS ORDERED: Vancomycin 1,000 MG VIAL ONE (07:05)
[2022-01-20] MEDS ORDERED: CeFAZolin Syr 3,000MG/30 ML 3,000 MG/30 ML SYRINGE IVPB ONE (07:11)
[2022-01-20] MEDS ORDERED: Ringers Solution, Lactated 1,000 ML IVC SCH (07:15)
[2022-01-20] MEDS ORDERED: *HR* FentaNYL (PF) 100 MCG/2 ML VIAL ONE (07:20)
[2022-01-20] MEDS ORDERED: *HR* Propofol 200 MG/20 ML VIAL IVP ONE (07:20)
[2022-01-20] MEDS ORDERED: *HR* Midazolam HCl 5 MG/5 ML VIAL IVP ONE (07:21)
[2022-01-20] MEDS ORDERED: Lidocaine HCL 4 ML Topical Solution (Laryng-O-Jet Kit Sterile Pak) TP ONE (07:23)
[2022-01-20] MEDS ORDERED: Lidocaine -MPF 2% 2 ML VIAL ONE (07:23)
[2022-01-20] MEDS ORDERED: *HR* Succinylcholine 200 MG/10 ML VIAL IVP ONE (07:23)
[2022-01-20] MEDS ORDERED: *HR* Remifentanil 2 MG VIAL IVP ONE (07:26)
[2022-01-20] MEDS ORDERED: Dexmedetomidine HCl 400 MCG/100 ML MLS IVC ONE (07:29)
[2022-01-20] MEDS ORDERED: *HR* OxyCODONE Immed Rel 5 MG TABLET PO PRN (07:39)
[2022-01-20] MEDS ORDERED: Ondansetron 4 MG/2 ML VIAL IVP PRN ×2 (07:39→14:25)
[2022-01-20] MEDS ORDERED: *HR* FentaNYL (PF) 100 MCG/2 ML VIAL IVP PRN (07:39)
[2022-01-20] MEDS ORDERED: Promethazine 6.25 MG in Water for inj. (sterile) 20 ML IVPB PRN (07:39)
[2022-01-20] MEDS ORDERED: Ipratropium Neb 0.5 MG NEBULIZER IH PRN (07:39)
[2022-01-20] MEDS ORDERED: *HR* Labetalol 20 MG/4 ML SYRINGE IVP PRN (07:39)
[2022-01-20] MEDS ORDERED: Albuterol 2.5 MG/3 ML NEBULIZER IH PRN (07:39)
[2022-01-20] MEDS ORDERED: Polymyxin B Sulfate 500,000 UNIT, Sodium Chloride IRRigation 1,000 ML IR ONE (07:45)
[2022-01-20] MEDS ORDERED: Ondansetron 4 MG/2 ML VIAL ONE (08:30)
[2022-01-20] MEDS ORDERED: *HR* Remifentanil 1 MG VIAL IVP ONE (09:49)
[2022-01-20] MEDS ORDERED: Ketorolac 30 MG/ML VIAL ONE (10:46)
[2022-01-20] MEDS ORDERED: *HR* HYDROMORPHONE 2 MG/ML VIAL ONE (11:00)
[2022-01-20] MEDS: *HR* HYDROmorphone PF 0.5 MG/0.5 ML SYRINGE IVP PRN ×3 (11:40→12:00)
[2022-01-20] MEDS ORDERED: Naloxone 0.4 MG/ML INJ IVP PRN (14:25)
[2022-01-20] MEDS ORDERED: Fluticasone Propionate Nasal 50 MCG/SPRAY BOTTLE NS PRN (14:25)
[2022-01-20] MEDS: Ringers Solution, Lactated 1,000 ML IVC SCH (15:24)
[2022-01-20] MEDS: *HR* OxyCODONE Immed Rel 5 MG TABLET PO PRN ×3 (15:24→23:40)
[2022-01-20] MEDS: Gabapentin 300 MG CAPSULE PO SCH ×3 (15:24→20:52)
[2022-01-20] MEDS: CeFAZolin 2 GM/120 ML BAG IVPB SCH ×2 (15:25→23:41)
[2022-01-20] MEDS: Ipratropium/Albuterol Neb 3 ML IH SCH ×3 (15:33→21:31)
[2022-01-20] MEDS: *HR* HYDROcodone/Acet 5/325 mg TABLET PO PRN (20:51)
[2022-01-20] MEDS: risperiDONE 1 MG TABLET PO SCH (20:51)
[2022-01-20] MEDS: Budesonide/Formoterol 80/4.5 1 PUFF INH IH SCH (21:32)
[2022-01-21] MEDS: *HR* HYDROcodone/Acet 5/325 mg TABLET PO PRN ×3 (05:56→22:06)
[2022-01-21] MEDS ORDERED: Ondansetron 4 MG/2 ML VIAL ONE (06:59)
[2022-01-21] MEDS ORDERED: *HR* Succinylcholine 200 MG/10 ML VIAL IVP ONE (06:59)
[2022-01-21] MEDS ORDERED: *HR* Rocuronium Bromide 50 MG/5 ML VIAL ONE (06:59)
[2022-01-21] MEDS ORDERED: *HR* FentaNYL (PF) 100 MCG/2 ML VIAL ONE (06:59)
[2022-01-21] MEDS ORDERED: *HR* Midazolam HCl 2 MG/2 ML VIAL ONE (07:00)
[2022-01-21] MEDS ORDERED: *HR* Propofol 200 MG/20 ML VIAL IVP ONE (07:00)
[2022-01-21] MEDS ORDERED: *HR* Remifentanil 2 MG VIAL IVP ONE (07:11)
[2022-01-21] MEDS ORDERED: EPHEDrine 50 MG/ML VIAL ONE (07:33)
[2022-01-21] MEDS: Ipratropium/Albuterol Neb 3 ML IH SCH ×4 (07:38→23:03)
[2022-01-21] MEDS: Ringers Solution, Lactated 1,000 ML IVC SCH ×2 (07:38→09:44)
[2022-01-21] MEDS: Budesonide/Formoterol 80/4.5 1 PUFF INH IH SCH ×2 (07:59→20:00)
[2022-01-21] MEDS: lamoTRIgine 100 MG TABLET PO SCH (09:42)
[2022-01-21] MEDS: Gabapentin 300 MG CAPSULE PO SCH ×4 (09:43→21:16)
[2022-01-21] MEDS: *HR* OxyCODONE Immed Rel 5 MG TABLET PO PRN ×3 (09:43→18:41)
[2022-01-21] MEDS: BuPROPion SR (12 HR) 150 MG TABLET PO SCH (09:43)
[2022-01-21] MEDS ORDERED: Tiotropium 10 INH DOSE IH PRN (10:00)
[2022-01-21] MEDS: Acetaminophen 325 MG TABLET PO PRN (17:36)
[2022-01-21] MEDS: risperiDONE 1 MG TABLET PO SCH (21:16)
[2022-01-22] MEDS: *HR* OxyCODONE Immed Rel 5 MG TABLET PO PRN ×5 (00:57→20:49)
[2022-01-22] MEDS: Gabapentin 300 MG CAPSULE PO SCH ×4 (08:05→20:48)
[2022-01-22] MEDS: BuPROPion SR (12 HR) 150 MG TABLET PO SCH (08:05)
[2022-01-22] MEDS: lamoTRIgine 100 MG TABLET PO SCH (08:05)
[2022-01-22] MEDS: *HR* HYDROcodone/Acet 5/325 mg TABLET PO PRN (09:47)
[2022-01-22] MEDS: Ipratropium/Albuterol Neb 3 ML IH SCH ×4 (10:41→21:04)
[2022-01-22] MEDS: Budesonide/Formoterol 80/4.5 1 PUFF INH IH SCH ×2 (10:42→21:05)
[2022-01-22] MEDS: levoFLOXacin 750 MG TABLET PO SCH (13:07)
[2022-01-22 14:15] LABS: Basophils # 0.1 K/mcL (0.0-0.2); Basophils % 0.6 %; Eosinophils % 0.4 %; Hematocrit 35.6 % (35.3-44.9); Immature Granulocytes % 0.2 % (0-4); Lymphocytes % 21.4 %; Mean Corpuscular HGB Conc 33.7 g/dL (31.6-35.5); Mean Corpuscular Hemoglobin 31.5 pg (28.0-33.3); Mean Corpuscular Volume 93.4 fL (83.0-100.0); Monocytes # 0.9 K/mcL (0.0-1.3); Monocytes % 9.4 %; Neutrophils # 6.3 K/mcL (1.6-8.9); Platelet Count 211 K/mcL (140-400); Red Blood Count 3.81 M/mcL (3.82-4.97); White Blood Count 9.3 K/mcL (4.3-11.1)
[2022-01-22 14:32] LABS: BUN/Creatinine Ratio 8 (6-26); Blood Urea Nitrogen 6 mg/dL (6-20); Calcium 8.8 mg/dL (8.6-10.3); Carbon Dioxide 27 mEq/L (23-29); Chloride 101 mEq/L (98-107); Glucose 99 mg/dL (70-105); Osmolality,Calculated 278 (280-300); Potassium 3.4 mEq/L (3.5-5.1); Sodium 135 mEq/L (136-145); eGFR For African Americans > 60 (> 60); eGFR For Non-African Americans > 60 (> 60)
[2022-01-22] MEDS: risperiDONE 1 MG TABLET PO SCH (20:49)
[2022-01-23] MEDS: *HR* OxyCODONE Immed Rel 5 MG TABLET PO PRN ×5 (00:38→18:57)
[2022-01-23] MEDS: Ipratropium/Albuterol Neb 3 ML IH SCH ×4 (04:19→23:47)
[2022-01-23] MEDS: Gabapentin 300 MG CAPSULE PO SCH ×4 (08:26→21:07)
[2022-01-23] MEDS: levoFLOXacin 750 MG TABLET PO SCH (08:26)
[2022-01-23] MEDS: BuPROPion SR (12 HR) 150 MG TABLET PO SCH (08:27)
[2022-01-23] MEDS: *HR* HYDROcodone/Acet 5/325 mg TABLET PO PRN ×2 (08:27→21:07)
[2022-01-23] MEDS: lamoTRIgine 100 MG TABLET PO SCH (08:27)
[2022-01-23] MEDS: Budesonide/Formoterol 80/4.5 1 PUFF INH IH SCH ×2 (10:25→20:28)
[2022-01-23] MEDS: risperiDONE 1 MG TABLET PO SCH (21:08)
[2022-01-24] MEDS: *HR* OxyCODONE Immed Rel 5 MG TABLET PO PRN ×5 (00:17→20:15)
[2022-01-24] MEDS: Ipratropium/Albuterol Neb 3 ML IH SCH ×3 (05:24→23:48)
[2022-01-24 05:36] LABS: BUN/Creatinine Ratio 9 (6-26); Blood Urea Nitrogen 7 mg/dL (6-20); Calcium 8.9 mg/dL (8.6-10.3); Carbon Dioxide 27 mEq/L (23-29); Chloride 100 mEq/L (98-107); Glucose 134 mg/dL (70-105); Magnesium 1.7 mg/dL (1.6-2.6); Osmolality,Calculated 278 (280-300); Potassium 3.3 mEq/L (3.5-5.1); Sodium 134 mEq/L (136-145); eGFR For African Americans > 60 (> 60); eGFR For Non-African Americans > 60 (> 60)
[2022-01-24] MEDS: BuPROPion SR (12 HR) 150 MG TABLET PO SCH (08:00)
[2022-01-24] MEDS: levoFLOXacin 750 MG TABLET PO SCH (08:00)
[2022-01-24] MEDS: Gabapentin 300 MG CAPSULE PO SCH ×4 (08:00→20:17)
[2022-01-24] MEDS: lamoTRIgine 100 MG TABLET PO SCH (08:00)
[2022-01-24] MEDS: Budesonide/Formoterol 80/4.5 1 PUFF INH IH SCH ×2 (09:45→23:48)
[2022-01-24] MEDS: risperiDONE 1 MG TABLET PO SCH (20:17)
[2022-01-24] MEDS: *HR* HYDROcodone/Acet 5/325 mg TABLET PO PRN (22:12)
[2022-01-24] MEDS: Melatonin 3 MG TABLET PO PRN (22:12)
[2022-01-25] MEDS: *HR* OxyCODONE Immed Rel 5 MG TABLET PO PRN ×5 (00:17→19:34)
[2022-01-25] MEDS: Budesonide/Formoterol 80/4.5 1 PUFF INH IH SCH ×2 (07:49→20:56)
[2022-01-25] MEDS: Ipratropium/Albuterol Neb 3 ML IH SCH ×3 (07:49→17:45)
[2022-01-25] MEDS: Gabapentin 300 MG CAPSULE PO SCH ×4 (08:32→21:57)
[2022-01-25] MEDS: BuPROPion SR (12 HR) 150 MG TABLET PO SCH (08:32)
[2022-01-25] MEDS: lamoTRIgine 100 MG TABLET PO SCH (08:33)
[2022-01-25] MEDS: levoFLOXacin 750 MG TABLET PO SCH (08:41)
[2022-01-25] MEDS: Nicotine 14 MG PATCH.TD24 TD SCH (13:02)
[2022-01-25] MEDS: *HR* HYDROcodone/Acet 5/325 mg TABLET PO PRN (21:51)
[2022-01-25] MEDS: risperiDONE 1 MG TABLET PO SCH (21:51)
[2022-01-25] MEDS: Melatonin 3 MG TABLET PO PRN (21:52)
[2022-01-26] MEDS: Ipratropium/Albuterol Neb 3 ML IH SCH ×5 (00:15→21:14)
[2022-01-26] MEDS: *HR* OxyCODONE Immed Rel 5 MG TABLET PO PRN ×5 (03:11→23:08)
[2022-01-26] MEDS: Gabapentin 300 MG CAPSULE PO SCH ×4 (08:07→21:21)
[2022-01-26] MEDS: levoFLOXacin 750 MG TABLET PO SCH (08:07)
[2022-01-26] MEDS: Acetaminophen 325 MG TABLET PO PRN (08:07)
[2022-01-26] MEDS: lamoTRIgine 100 MG TABLET PO SCH (08:07)
[2022-01-26] MEDS: BuPROPion SR (12 HR) 150 MG TABLET PO SCH (08:08)
[2022-01-26] MEDS: Nicotine 14 MG PATCH.TD24 TD SCH (08:08)
[2022-01-26] MEDS: *HR* HYDROcodone/Acet 5/325 mg TABLET PO PRN ×2 (10:07→21:21)
[2022-01-26] MEDS: Budesonide/Formoterol 80/4.5 1 PUFF INH IH SCH ×2 (10:18→21:09)
[2022-01-26] MEDS ORDERED: Sennosides 8.6 MG TABLET PO PRN (20:56)
[2022-01-26] MEDS ORDERED: polyethylene glycoL 3350 17 GM POWD.PACK PO PRN (20:59)
[2022-01-26] MEDS: risperiDONE 1 MG TABLET PO SCH (21:20)
[2022-01-26] MEDS: Melatonin 3 MG TABLET PO PRN (21:22)
[2022-01-27] MEDS: Ipratropium/Albuterol Neb 3 ML IH SCH (06:27)
[2022-01-27 07:07] VITALS: BP 102/65; PULSE 83; TEMP 98; O2SAT 97
[2022-01-27] MEDS: lamoTRIgine 100 MG TABLET PO SCH (07:33)
[2022-01-27] MEDS: Nicotine 14 MG PATCH.TD24 TD SCH (07:33)
[2022-01-27] MEDS: *HR* OxyCODONE Immed Rel 5 MG TABLET PO PRN (07:33)
[2022-01-27] MEDS: Acetaminophen 325 MG TABLET PO PRN (07:33)
[2022-01-27] MEDS: BuPROPion SR (12 HR) 150 MG TABLET PO SCH (07:33)
[2022-01-27] MEDS: Gabapentin 300 MG CAPSULE PO SCH (07:33)
[2022-01-27] MEDS: Budesonide/Formoterol 80/4.5 1 PUFF INH IH SCH (07:39)
[2022-01-27] MEDS: *HR* HYDROcodone/Acet 5/325 mg TABLET PO PRN (09:41)
== END 2022-01-27 11:48 | disposition home health service (06) ==
LOC: SDCAOSI 06:39 → 4WAOSI 06:39
PROVIDERS: ADMIT Orthopaedic Surgery Orthopaedic Surgery of the Spine; ATTEND Orthopaedic Surgery Orthopaedic Surgery of the Spine